=== PATIENT | male | born 1960 | race Caucasian/White ===

== ENCOUNTER 2021-07-19 14:24 | Inpatient (IN) ==
[2021-07-19] MEDS ORDERED: 0.9 % Sodium Chloride 1,000 ML IVC ONE ×2 (15:00→15:48)
[2021-07-19 15:17] LABS: Basophils # 0.1 K/mcL (0.0-0.2); Basophils % 1.2 %; Eosinophils # 0.2 K/mcL (0.0-0.6); Eosinophils % 1.6 %; Hematocrit 38.1 % (37.5-50.1); Hemoglobin 13.3 g/dL (12.9-16.9); Immature Granulocytes % 0.5 % (0-4); Lymphocytes # 2.1 K/mcL (0.6-4.6); Lymphocytes % 18.7 %; Mean Corpuscular HGB Conc 34.9 g/dL (31.6-35.5); Mean Corpuscular Hemoglobin 29.4 pg (28.0-33.3); Mean Corpuscular Volume 84.1 fL (83.0-100.0); Mean Platelet Volume 9.7 fL (9.4-12.4); Monocytes # 0.8 K/mcL (0.0-1.3); Monocytes % 7.4 %; Neutrophils # 7.7 K/mcL (1.6-8.9); Platelet Count 251 K/mcL (140-400); Red Blood Count 4.53 M/mcL (4.19-5.50); Red Cell Distribution Width 12.6 % (11.5-14.5); Segmented Neutrophils % 70.6 %
[2021-07-19 15:41] LABS: Bacteria,Urine Few per hpf (None-Few); Bilirubin,Urine Negative (Negative); Blood,Urine Small (Negative); Clarity,Urine Clear (Clear); Color,Urine Light-Yellow (Yellow); Glucose,Urine (UA) 500 mg/dL (Normal); Ketones,Urine Negative (Negative); Leukocyte Esterase,Urine Negative (Negative); Mucus,Urine Few per lpf (None-Few); Nitrite,Urine Negative (Negative); PH,Urine 6.5 pH Units (5.0-8.0); Protein,Urine >=600 mg/dL (Neg-Trace); Specific Gravity,Urine 1.012 (1.010-1.025); Squamous Epithelial Cell,Urine Few per hpf (None-Few); Urobilinogen,Urine Normal (Normal); WBC,Urine 0-3 per hpf (0-3)
[2021-07-19 15:46] LABS: Albumin 3.5 g/dL (3.5-5.7); Albumin/Globulin Ratio 1.1 (1.1-2.2); Bilirubin,Total 0.4 mg/dL (0.3-1.0); Calcium 9.1 mg/dL (8.6-10.3); Globulin 3.2 g/dL (2.4-3.5); Magnesium 1.7 mg/dL (1.6-2.6); Phosphorous 3.7 mg/dL (2.7-4.5); Potassium 3.7 mEq/L (3.5-5.1); Total Protein 6.7 g/dL (6.4-8.9); Troponin I 0.04 ng/mL (< 0.04)
[2021-07-19] MEDS ORDERED: Naloxone 0.4 MG/ML INJ IVP PRN (16:39)
[2021-07-19] MEDS ORDERED: Dextrose Gel 15 GM/37.5 ML TUBE PO PRN ×2 (16:45)
[2021-07-19] MEDS ORDERED: D5% in Water 1,000 ML IVC PRN (16:45)
[2021-07-19] MEDS ORDERED: *HR* Dextrose 50 % in Water (Syg) 50 ML SYRINGE IVP PRN (16:45)
[2021-07-19] MEDS: Insulin LISPRO 300 UNITS/3 ML VIAL SUBQ SCH (18:12)
[2021-07-19] MEDS: 0.9 % Sodium Chloride 1,000 ML IVC SCH (18:44)
[2021-07-19] MEDS ORDERED: Perflutren Lipid Microsphere 1.3 ML in 0.9 % Sodium Chloride 8.7 ML IVP PRN (18:54)
[2021-07-19] MEDS: Aspirin Enteric Coated 81 MG Tablet PO SCH (22:14)
[2021-07-19] MEDS: Insulin DETEMIR 100 UNIT/ML X5UNITS SUBQ SCH (22:17)
[2021-07-19] MEDS: hydrALAZINE 25 MG TABLET PO PRN (23:55)
[2021-07-20] MEDS ORDERED: NIFEdipine Immed Rel 10 MG CAPSULE PO ONE ×3 (00:57→21:47)
[2021-07-20] MEDS: 0.9 % Sodium Chloride 1,000 ML IVC SCH (03:18)
[2021-07-20 03:29] LABS: Basophils # 0.1 K/mcL (0.0-0.2); Eosinophils # 0.2 K/mcL (0.0-0.6); Eosinophils % 1.5 %; Hematocrit 34.5 % (37.5-50.1); Hemoglobin 11.8 g/dL (12.9-16.9); Immature Granulocytes % 0.5 % (0-4); Lymphocytes # 1.8 K/mcL (0.6-4.6); Lymphocytes % 17.3 %; Mean Corpuscular HGB Conc 34.2 g/dL (31.6-35.5); Mean Corpuscular Hemoglobin 28.9 pg (28.0-33.3); Mean Corpuscular Volume 84.4 fL (83.0-100.0); Mean Platelet Volume 9.9 fL (9.4-12.4); Monocytes # 0.8 K/mcL (0.0-1.3); Monocytes % 7.1 %; Neutrophils # 7.6 K/mcL (1.6-8.9); Platelet Count 221 K/mcL (140-400); Red Blood Count 4.09 M/mcL (4.19-5.50); Red Cell Distribution Width 12.7 % (11.5-14.5); Segmented Neutrophils % 72.6 %; White Blood Count 10.5 K/mcL (4.3-11.1)
[2021-07-20 03:38] LABS: Magnesium 1.6 mg/dL (1.6-2.6); Phosphorous 3.3 mg/dL (2.7-4.5)
[2021-07-20 03:41] LABS: Albumin 2.9 g/dL (3.5-5.7); Bilirubin,Total 0.2 mg/dL (0.3-1.0); Calcium 8.2 mg/dL (8.6-10.3); Chol/HDL Ratio 4.5 (0-4.9); Globulin 2.8 g/dL (2.4-3.5); Potassium 3.4 mEq/L (3.5-5.1); Total Protein 5.7 g/dL (6.4-8.9)
[2021-07-20 03:49] LABS: INR 1.1; Prothrombin Time 12.5 Seconds (9.4-12.1)
[2021-07-20 03:58] LABS: Troponin I 0.04 ng/mL (< 0.04)
[2021-07-20 05:05] LABS: Estimated Average Glucose 171 mg/dl; Hemoglobin A1C 7.6 %
[2021-07-20] MEDS: Aspirin Enteric Coated 81 MG Tablet PO SCH (08:39)
[2021-07-20] MEDS: Insulin LISPRO 300 UNITS/3 ML VIAL SUBQ SCH ×3 (08:40→17:36)
[2021-07-20] MEDS: Ondansetron 4 MG/2 ML VIAL IVP PRN ×2 (08:46→20:09)
[2021-07-20 11:56] LABS: Creatinine,Urine 54 mg/dL; Sodium, Urine < 10.0 mEq/L
[2021-07-20 14:22] LABS: Complement C3 150 mg/dL (87-200)
[2021-07-20] MEDS: hydrALAZINE 25 MG TABLET PO PRN (17:36)
[2021-07-20] MEDS: cloNIDine HCL 0.1 MG TABLET PO SCH (20:01)
[2021-07-20] MEDS: Insulin DETEMIR 100 UNIT/ML X5UNITS SUBQ SCH (20:05)
[2021-07-20] MEDS: Melatonin 3 MG TABLET PO PRN (22:35)
[2021-07-21 02:28] LABS: Calcium 8.5 mg/dL (8.6-10.3); Magnesium 1.8 mg/dL (1.6-2.6); Phosphorous 4.3 mg/dL (2.7-4.5); Potassium 3.6 mEq/L (3.5-5.1)
[2021-07-21] MEDS ORDERED: NIFEdipine Immed Rel 10 MG CAPSULE PO ONE (05:57)
[2021-07-21] MEDS: Aspirin Enteric Coated 81 MG Tablet PO SCH (07:55)
[2021-07-21] MEDS: Insulin LISPRO 300 UNITS/3 ML VIAL SUBQ SCH ×3 (07:55→16:51)
[2021-07-21] MEDS: hydrALAZINE 25 MG TABLET PO PRN (07:55)
[2021-07-21] MEDS: 0.9 % Sodium Chloride 1,000 ML IVC SCH ×2 (12:37→20:50)
[2021-07-21] MEDS ORDERED: hydrALAZINE 25 MG TABLET PO SCH (16:00)
[2021-07-21] MEDS: hydrALAZINE 25 MG TABLET PO SCH (16:50)
[2021-07-21] MEDS: Melatonin 3 MG TABLET PO PRN (20:28)
[2021-07-21] MEDS: cloNIDine HCL 0.1 MG TABLET PO SCH (20:28)
[2021-07-21] MEDS: Insulin DETEMIR 100 UNIT/ML X5UNITS SUBQ SCH (20:29)
[2021-07-21] MEDS: NIFEdipine XL (24 HR) 60 MG TAB.ER.24 PO SCH (20:49)
[2021-07-22] MEDS: hydrALAZINE 25 MG TABLET PO SCH ×5 (00:07→23:45)
[2021-07-22 01:44] LABS: Calcium 7.9 mg/dL (8.6-10.3); Potassium 3.5 mEq/L (3.5-5.1)
[2021-07-22] MEDS: 0.9 % Sodium Chloride 1,000 ML IVC SCH (09:40)
[2021-07-22] MEDS: Insulin LISPRO 300 UNITS/3 ML VIAL SUBQ SCH ×3 (09:42→16:32)
[2021-07-22] MEDS: NIFEdipine XL (24 HR) 60 MG TAB.ER.24 PO SCH (09:44)
[2021-07-22] MEDS: Aspirin Enteric Coated 81 MG Tablet PO SCH (09:44)
[2021-07-22 18:29] LABS: Microalbumin,Urine > 1350 mg/L; Protein/Creatinine Ratio,Urine 16.59 mg/mg (0.00-0.20)
[2021-07-22] MEDS: cloNIDine HCL 0.1 MG TABLET PO SCH (20:50)
[2021-07-22] MEDS: Insulin DETEMIR 100 UNIT/ML X5UNITS SUBQ SCH (20:53)
[2021-07-22] MEDS: *HR* Heparin 5,000 UNIT/ML VIAL SQ SCH (20:59)
[2021-07-23] MEDS: *HR* Heparin 5,000 UNIT/ML VIAL SQ SCH ×2 (04:28→13:11)
[2021-07-23] MEDS: 0.9 % Sodium Chloride 1,000 ML IVC SCH ×3 (04:29→13:09)
[2021-07-23 07:59] LABS: Basophils # 0.1 K/mcL (0.0-0.2); Basophils % 1.3 %; Eosinophils # 0.2 K/mcL (0.0-0.6); Eosinophils % 2.4 %; Hematocrit 33.7 % (37.5-50.1); Hemoglobin 11.5 g/dL (12.9-16.9); Immature Granulocytes % 0.4 % (0-4); Lymphocytes # 1.8 K/mcL (0.6-4.6); Lymphocytes % 18.1 %; Mean Corpuscular HGB Conc 34.1 g/dL (31.6-35.5); Mean Corpuscular Hemoglobin 29.2 pg (28.0-33.3); Mean Corpuscular Volume 85.5 fL (83.0-100.0); Mean Platelet Volume 9.6 fL (9.4-12.4); Monocytes # 0.7 K/mcL (0.0-1.3); Monocytes % 6.9 %; Platelet Count 218 K/mcL (140-400); Red Blood Count 3.94 M/mcL (4.19-5.50); Red Cell Distribution Width 12.8 % (11.5-14.5); Segmented Neutrophils % 70.9 %; White Blood Count 9.9 K/mcL (4.3-11.1)
[2021-07-23 08:13] LABS: Calcium 8.1 mg/dL (8.6-10.3); Potassium 3.7 mEq/L (3.5-5.1)
[2021-07-23] MEDS: Insulin LISPRO 300 UNITS/3 ML VIAL SUBQ SCH ×2 (08:28→13:10)
[2021-07-23] MEDS: Aspirin Enteric Coated 81 MG Tablet PO SCH (08:30)
[2021-07-23] MEDS: hydrALAZINE 25 MG TABLET PO SCH (08:30)
[2021-07-23] MEDS ORDERED: NIFEdipine XL (24 HR) 30 MG TAB.ER.24 PO SCH (09:00)
[2021-07-23 09:56] LABS: Serine Protease-3 Antibody 0 AU/mL (0-19)
[2021-07-23 12:44] VITALS: BP 157/87; PULSE 66; TEMP 98.1; O2SAT 95
[2021-07-23] MEDS ORDERED: Ringers Solution, Lactated 1,000 ML IVC SCH (13:30)
[2021-07-24 08:10] LABS: Alpha 2 Globulin (PEP) 1.11 g/dL (0.48-1.05); Beta Globulin (PEP) 0.78 g/dL (0.48-1.10)
[2021-07-24 10:15] LABS: IFE Reflexed IFE Done; Immunoglobulin A 232 mg/dL (68-408); Immunoglobulin G 1041 mg/dL (768-1632); Immunoglobulin M 139 mg/dL (35-263)
[2021-07-24 17:38] LABS: ANCA IFA Titer <1:20 (<1:20)
[2021-07-24 18:20] LABS: ANCA IFA Pattern NONE DETECTED (None Detected)
== END 2021-07-23 16:27 | disposition left against medical advice (07) | DRG 469 ==
LOC: 2ANU 14:24 → EMEROOARM 14:24 → SUATTDRO 17:21 → 2ANU 17:56
PROVIDERS: ADMIT Hospitalist; ATTEND Hospitalist

== ENCOUNTER 2022-02-06 06:30 | Inpatient (IN) ==
[2022-02-06 09:12] LABS: Basophils % 0.3 %; Eosinophils % 0.2 %; Hematocrit 33.4 % (37.5-50.1); Hemoglobin 10.6 g/dL (12.9-16.9); Immature Granulocytes % 0.7 % (0-4); Lymphocytes # 0.8 K/mcL (0.6-4.6); Lymphocytes % 6.1 %; Mean Corpuscular HGB Conc 31.7 g/dL (31.6-35.5); Mean Corpuscular Hemoglobin 26.8 pg (28.0-33.3); Mean Corpuscular Volume 84.3 fL (83.0-100.0); Mean Platelet Volume 10.2 fL (9.4-12.4); Monocytes # 0.9 K/mcL (0.0-1.3); Monocytes % 7.2 %; Platelet Count 230 K/mcL (140-400); Red Blood Count 3.96 M/mcL (4.19-5.50); Red Cell Distribution Width 14.4 % (11.5-14.5); Segmented Neutrophils % 85.5 %; White Blood Count 12.9 K/mcL (4.3-11.1)
[2022-02-06 10:01] LABS: Albumin 2.9 g/dL (3.5-5.7); Bilirubin,Total 0.7 mg/dL (0.3-1.0); Calcium 8.5 mg/dL (8.6-10.3); Globulin 2.8 g/dL (2.4-3.5); Magnesium 1.9 mg/dL (1.6-2.6); Potassium 4.3 mEq/L (3.5-5.1); Thyroid Stimulating Hormone 3.486 mcIU/mL (0.340-5.600); Total Protein 5.7 g/dL (6.4-8.9); Troponin I 0.06 ng/mL (< 0.04)
[2022-02-06] MEDS ORDERED: Benzonatate 100 MG CAPSULE PO STA (10:58)
[2022-02-06] MEDS ORDERED: Furosemide 40 MG/4 ML VIAL IVP ONE (11:05)
[2022-02-06] MEDS ORDERED: cefTRIAXone 1,000 MG in 0.9 % Sodium Chloride 10 ML IVP ONE (11:07)
[2022-02-06] MEDS ORDERED: Naloxone 0.4 MG/ML INJ IVP PRN (12:08)
[2022-02-06] MEDS ORDERED: Ipratropium/Albuterol Neb 3 ML IH PRN (12:37)
[2022-02-06] MEDS ORDERED: *HR* Dextrose 50 % in Water (Syg) 50 ML SYRINGE IVP PRN (12:44)
[2022-02-06] MEDS ORDERED: D5% in Water 1,000 ML IVC PRN (12:44)
[2022-02-06] MEDS ORDERED: Dextrose 4 GM Chewable Tablets PO PRN ×2 (12:44)
[2022-02-06 13:30] LABS: Troponin I 0.05 ng/mL (< 0.04)
[2022-02-06 14:06] LABS: Bilirubin,Urine Negative (Negative); Blood,Urine Negative (Negative); Clarity,Urine Clear (Clear); Color,Urine Yellow (Yellow); Glucose,Urine (UA) 100 mg/dL (Normal); Ketones,Urine Negative (Negative); Leukocyte Esterase,Urine Negative (Negative); Mucus,Urine Few per lpf (None-Few); Nitrite,Urine Negative (Negative); Protein,Urine >=600 mg/dL (Neg-Trace); Specific Gravity,Urine 1.021 (1.010-1.025); Squamous Epithelial Cell,Urine Few per hpf (None-Few); Urobilinogen,Urine Normal (Normal)
[2022-02-06 14:23] LABS: Estimated Average Glucose 117 mg/dl; Hemoglobin A1C 5.7 %
[2022-02-06 15:14] LABS: Phosphorous 3.3 mg/dL (2.7-4.5); Uric Acid 6.4 mg/dL (2.3-7.6)
[2022-02-06 16:02] LABS: Creatinine,Urine 115 mg/dL; Microalbumin,Urine > 1350 mg/L; Protein/Creatinine Ratio,Urine 7.83 mg/mg (0.00-0.20); Sodium, Urine 33.2 mEq/L
[2022-02-06] MEDS: Insulin LISPRO 300 UNITS/3 ML VIAL SUBQ SCH (16:06)
[2022-02-06] MEDS: *HR* Heparin 5,000 UNIT/ML VIAL SQ SCH (17:18)
[2022-02-06] MEDS: Albumin 25% 25gram/100mL 25 GM/100 ML IV.SOLN IVPB SCH ×2 (17:18→23:59)
[2022-02-06 18:21] LABS: Hepatitis B Surface Antigen Nonreactive (Nonreactive)
[2022-02-06] MEDS: GuaiFENesin Liq 200 MG/10 ML UDC PO PRN (18:35)
[2022-02-06 18:49] LABS: Hepatitis B Core IgM Nonreactive (Nonreactive)
[2022-02-06 18:50] LABS: Hepatitis C Virus Antibody Nonreactive (Nonreactive)
[2022-02-06 18:51] LABS: Hepatitis A Antibody IgM Nonreactive (Nonreactive)
[2022-02-06] MEDS: Furosemide 40 MG/4 ML VIAL IVP SCH (19:37)
[2022-02-06] MEDS ORDERED: NIFEdipine XL (24 HR) 30 MG TAB.ER.24 PO SCH (21:00)
[2022-02-06] MEDS ORDERED: Metoprolol 100 MG TABLET PO SCH ×2 (21:00)
[2022-02-06] MEDS ORDERED: Acetaminophen 325 MG TABLET PO ONE (23:59)
[2022-02-07] MEDS: *HR* Heparin 5,000 UNIT/ML VIAL SQ SCH ×3 (05:45→18:13)
[2022-02-07] MEDS: GuaiFENesin Liq 200 MG/10 ML UDC PO PRN (05:51)
[2022-02-07 06:06] LABS: Basophils % 0.1 %; Eosinophils % 0.1 %; Hematocrit 31.4 % (37.5-50.1); Hemoglobin 10.1 g/dL (12.9-16.9); Immature Granulocytes % 0.7 % (0-4); Lymphocytes # 0.8 K/mcL (0.6-4.6); Lymphocytes % 5.5 %; Mean Corpuscular HGB Conc 32.2 g/dL (31.6-35.5); Mean Corpuscular Hemoglobin 26.7 pg (28.0-33.3); Mean Corpuscular Volume 83.1 fL (83.0-100.0); Mean Platelet Volume 10.2 fL (9.4-12.4); Monocytes % 7.2 %; Neutrophils # 12.1 K/mcL (1.6-8.9); Platelet Count 226 K/mcL (140-400); Red Blood Count 3.78 M/mcL (4.19-5.50); Red Cell Distribution Width 14.4 % (11.5-14.5); Segmented Neutrophils % 86.4 %
[2022-02-07 06:24] LABS: Calcium 8.3 mg/dL (8.6-10.3); Magnesium 1.9 mg/dL (1.6-2.6); Phosphorous 3.8 mg/dL (2.7-4.5); Potassium 4.3 mEq/L (3.5-5.1)
[2022-02-07] MEDS ORDERED: Perflutren Lipid Microsphere 1.3 ML in 0.9 % Sodium Chloride 8.7 ML IVP PRN ×2 (07:39→18:53)
[2022-02-07] MEDS ORDERED: Cefepime HCl 1,000 MG in 0.9 % Sodium Chloride 10 ML IVP SCH (08:00)
[2022-02-07] MEDS: Furosemide 40 MG/4 ML VIAL IVP SCH (10:00)
[2022-02-07] MEDS: Cefepime HCl 1,000 MG in 0.9 % Sodium Chloride 10 ML IVP SCH ×2 (10:00→22:33)
[2022-02-07] MEDS: Aspirin 81 MG TAB.CHEW PO SCH (10:01)
[2022-02-07] MEDS: Insulin LISPRO 300 UNITS/3 ML VIAL SUBQ SCH ×3 (10:01→18:12)
[2022-02-07] MEDS: Doxycycline 100 MG in 0.9 % Sodium Chloride Mini Bag 100 ML IVPB SCH ×2 (10:01→18:14)
[2022-02-07] MEDS: Albumin 25% 25gram/100mL 25 GM/100 ML IV.SOLN IVPB SCH ×2 (11:15→18:21)
[2022-02-07 17:48] LABS: ABG Base Excess -4 mEq/L (-2 to 3); ABG HCO3 17 mEq/L (21-27); ABG Oxygen Saturation 98 % (95-98); ABG PCO2 22 mmHg (35-45); ABG PH 7.51 pH Units (7.32-7.45); ABG PO2 95 mmHg (85-104); ABG TCO2 18 mEq/L (20-26)
[2022-02-07] MEDS: Ergocalciferol (VIT D2) 50,000 UNIT (1.25MG) CAP PO SCH (18:12)
[2022-02-08] MEDS: Albumin 25% 25gram/100mL 25 GM/100 ML IV.SOLN IVPB SCH ×4 (00:59→23:29)
[2022-02-08] MEDS: hydrALAZINE 25 MG TABLET PO SCH ×4 (01:05→23:29)
[2022-02-08] MEDS: Doxycycline 100 MG in 0.9 % Sodium Chloride Mini Bag 100 ML IVPB SCH ×2 (05:54→17:58)
[2022-02-08] MEDS: *HR* Heparin 5,000 UNIT/ML VIAL SQ SCH (05:55)
[2022-02-08] MEDS: Insulin LISPRO 300 UNITS/3 ML VIAL SUBQ SCH ×3 (09:07→17:12)
[2022-02-08] MEDS: Aspirin 81 MG TAB.CHEW PO SCH (09:07)
[2022-02-08] MEDS: Cefepime HCl 1,000 MG in 0.9 % Sodium Chloride 10 ML IVP SCH ×2 (09:07→20:04)
[2022-02-08 09:13] LABS: Basophils % 0.2 %; Eosinophils # 0.1 K/mcL (0.0-0.6); Eosinophils % 0.5 %; Hematocrit 29.5 % (37.5-50.1); Hemoglobin 9.5 g/dL (12.9-16.9); Immature Granulocytes % 0.7 % (0-4); Lymphocytes # 0.7 K/mcL (0.6-4.6); Lymphocytes % 5.6 %; Mean Corpuscular HGB Conc 32.2 g/dL (31.6-35.5); Mean Corpuscular Hemoglobin 26.6 pg (28.0-33.3); Mean Corpuscular Volume 82.6 fL (83.0-100.0); Mean Platelet Volume 10.3 fL (9.4-12.4); Monocytes # 0.6 K/mcL (0.0-1.3); Monocytes % 4.5 %; Neutrophils # 10.9 K/mcL (1.6-8.9); Platelet Count 225 K/mcL (140-400); Red Blood Count 3.57 M/mcL (4.19-5.50); Red Cell Distribution Width 14.5 % (11.5-14.5); Segmented Neutrophils % 88.5 %; White Blood Count 12.3 K/mcL (4.3-11.1)
[2022-02-08 09:35] LABS: Calcium 8.6 mg/dL (8.6-10.3); Magnesium 1.9 mg/dL (1.6-2.6); Phosphorous 3.4 mg/dL (2.7-4.5)
[2022-02-08] MEDS ORDERED: *HR* Heparin 5,000 UNIT/ML VIAL IVP ONE (10:42)
[2022-02-08] MEDS ORDERED: *HR* Heparin 5,000 UNIT/ML VIAL IVP PRN ×2 (10:42)
[2022-02-08] MEDS ORDERED: Furosemide 40 MG/4 ML VIAL IVP ONE (11:23)
[2022-02-08] MEDS: Heparin 25,000UNIT/250ML 1/2NS 25,000 UNIT/250 ML IV.SOLN IVC SCH (12:19)
[2022-02-08 12:26] LABS: Hematocrit 27.5 % (37.5-50.1); Hemoglobin 8.6 g/dL (12.9-16.9); Mean Corpuscular HGB Conc 31.3 g/dL (31.6-35.5); Mean Corpuscular Hemoglobin 26.2 pg (28.0-33.3); Mean Corpuscular Volume 83.8 fL (83.0-100.0); Mean Platelet Volume 10.5 fL (9.4-12.4); Platelet Count 209 K/mcL (140-400); Red Blood Count 3.28 M/mcL (4.19-5.50); Red Cell Distribution Width 14.5 % (11.5-14.5); White Blood Count 11.8 K/mcL (4.3-11.1)
[2022-02-08 12:36] LABS: Heparin anti-factor XA UFH < 0.04 IU/mL (0.30-0.70); INR 1.5; Prothrombin Time 16.4 Seconds (9.4-12.1)
[2022-02-08] MEDS ORDERED: Acetaminophen 325 MG TABLET PO ONE (19:51)
[2022-02-08] MEDS: Metoprolol XL (24 HR) Succ 25 MG TAB.ER.24H PO SCH (20:03)
[2022-02-09] MEDS: Heparin 25,000UNIT/250ML 1/2NS 25,000 UNIT/250 ML IV.SOLN IVC SCH ×2 (02:50→16:57)
[2022-02-09] MEDS: Doxycycline 100 MG in 0.9 % Sodium Chloride Mini Bag 100 ML IVPB SCH (04:37)
[2022-02-09] MEDS: GuaiFENesin Liq 200 MG/10 ML UDC PO PRN ×2 (05:34→22:20)
[2022-02-09] MEDS: Insulin LISPRO 300 UNITS/3 ML VIAL SUBQ SCH ×3 (07:18→16:25)
[2022-02-09] MEDS: Albumin 25% 25gram/100mL 25 GM/100 ML IV.SOLN IVPB SCH ×3 (09:40→23:59)
[2022-02-09] MEDS: Doxycycline 100 MG CAPSULE PO SCH ×2 (09:41→20:10)
[2022-02-09] MEDS: Metoprolol XL (24 HR) Succ 25 MG TAB.ER.24H PO SCH ×2 (09:41→20:10)
[2022-02-09] MEDS: hydrALAZINE 25 MG TABLET PO SCH ×3 (09:41→23:59)
[2022-02-09] MEDS: Aspirin 81 MG TAB.CHEW PO SCH (09:41)
[2022-02-09] MEDS: cephALEXin 500 MG CAPSULE PO SCH ×2 (09:41→20:10)
[2022-02-09 10:07] LABS: Basophils % 0.3 %; Eosinophils # 0.1 K/mcL (0.0-0.6); Eosinophils % 0.7 %; Hematocrit 29.8 % (37.5-50.1); Immature Granulocytes % 0.7 % (0-4); Lymphocytes # 0.5 K/mcL (0.6-4.6); Lymphocytes % 4.6 %; Mean Corpuscular HGB Conc 31.2 g/dL (31.6-35.5); Mean Corpuscular Volume 83.2 fL (83.0-100.0); Mean Platelet Volume 10.4 fL (9.4-12.4); Monocytes # 0.5 K/mcL (0.0-1.3); Monocytes % 4.1 %; Neutrophils # 10.6 K/mcL (1.6-8.9); Platelet Count 271 K/mcL (140-400); Red Blood Count 3.58 M/mcL (4.19-5.50); Red Cell Distribution Width 14.6 % (11.5-14.5); Segmented Neutrophils % 89.6 %
[2022-02-09 10:23] LABS: Calcium 8.7 mg/dL (8.6-10.3); Potassium 4.1 mEq/L (3.5-5.1)
[2022-02-09 10:30] LABS: Hemoglobin 9.3 g/dL (12.9-16.9); White Blood Count 11.8 K/mcL (4.3-11.1)
[2022-02-09] MEDS ORDERED: Furosemide 40 MG/4 ML VIAL IVP ONE (15:46)
[2022-02-10] MEDS ORDERED: Acetaminophen 325 MG TABLET PO ONE (01:48)
[2022-02-10 02:01] LABS: Basophils % 0.4 %; Eosinophils # 0.1 K/mcL (0.0-0.6); Eosinophils % 0.9 %; Hematocrit 28.3 % (37.5-50.1); Hemoglobin 8.9 g/dL (12.9-16.9); Immature Granulocytes % 0.8 % (0-4); Lymphocytes # 0.8 K/mcL (0.6-4.6); Lymphocytes % 7.2 %; Mean Corpuscular HGB Conc 31.4 g/dL (31.6-35.5); Mean Corpuscular Hemoglobin 26.3 pg (28.0-33.3); Mean Corpuscular Volume 83.7 fL (83.0-100.0); Mean Platelet Volume 10.6 fL (9.4-12.4); Monocytes # 0.5 K/mcL (0.0-1.3); Monocytes % 4.6 %; Neutrophils # 9.7 K/mcL (1.6-8.9); Platelet Count 268 K/mcL (140-400); Red Blood Count 3.38 M/mcL (4.19-5.50); Red Cell Distribution Width 14.6 % (11.5-14.5); Segmented Neutrophils % 86.1 %; White Blood Count 11.3 K/mcL (4.3-11.1)
[2022-02-10 02:08] LABS: Heparin anti-factor XA UFH 0.5 IU/mL (0.30-0.70); INR 1.5; Prothrombin Time 17.1 Seconds (9.4-12.1)
[2022-02-10 02:11] LABS: Activated Partial Thrombo Time 96.4 Seconds (26.0-36.0)
[2022-02-10 02:20] LABS: Calcium 8.8 mg/dL (8.6-10.3); Potassium 3.9 mEq/L (3.5-5.1)
[2022-02-10] MEDS: GuaiFENesin Liq 200 MG/10 ML UDC PO PRN ×3 (04:41→19:35)
[2022-02-10] MEDS: Insulin LISPRO 300 UNITS/3 ML VIAL SUBQ SCH ×3 (07:23→15:40)
[2022-02-10] MEDS: Metoprolol XL (24 HR) Succ 25 MG TAB.ER.24H PO SCH ×2 (07:35→19:37)
[2022-02-10] MEDS: hydrALAZINE 25 MG TABLET PO SCH ×4 (07:35→23:39)
[2022-02-10] MEDS: Aspirin 81 MG TAB.CHEW PO SCH (07:35)
[2022-02-10] MEDS: Doxycycline 100 MG CAPSULE PO SCH ×2 (07:35→19:37)
[2022-02-10] MEDS: cephALEXin 500 MG CAPSULE PO SCH ×2 (07:35→19:37)
[2022-02-10] MEDS: Albumin 25% 25gram/100mL 25 GM/100 ML IV.SOLN IVPB SCH ×4 (07:36→23:39)
[2022-02-10] MEDS ORDERED: Furosemide 240 MG in 0.9 % Sodium Chloride 96 ML IVC SCH (08:00)
[2022-02-10] MEDS ORDERED: *HR* Heparin 10,000 UNIT/10 ML VIAL IV PRN (10:55)
[2022-02-10] MEDS ORDERED: Albumin 25% 25gram/100mL 25 GM/100 ML IV.SOLN IVPB PRN (10:55)
[2022-02-10] MEDS ORDERED: 0.9 % Sodium Chloride 250 ML IVC PRN (10:55)
[2022-02-10] MEDS ORDERED: 0.9 % Sodium Chloride 1,000 ML PRIME SCH (11:00)
[2022-02-10] MEDS: Heparin 25,000UNIT/250ML 1/2NS 25,000 UNIT/250 ML IV.SOLN IVC SCH (11:56)
[2022-02-10] MEDS ORDERED: Heparin 1,000 UNITS/500 mL 500 ML ONE (12:39)
[2022-02-10] MEDS ORDERED: *HR* Heparin 5,000 UNIT/ML VIAL ONE (13:46)
[2022-02-10 17:18] LABS: Hepatitis B Surface Antibody < 3.10 mIU/mL
[2022-02-10 17:29] LABS: Hepatitis B Surface Antigen Nonreactive (Nonreactive)
[2022-02-11] MEDS: Heparin 25,000UNIT/250ML 1/2NS 25,000 UNIT/250 ML IV.SOLN IVC SCH ×2 (01:59→16:54)
[2022-02-11] MEDS ORDERED: Acetaminophen 325 MG TABLET PO ONE (02:17)
[2022-02-11 02:34] LABS: Basophils % 0.4 %; Eosinophils # 0.1 K/mcL (0.0-0.6); Hematocrit 28.5 % (37.5-50.1); Hemoglobin 8.9 g/dL (12.9-16.9); Lymphocytes % 8.9 %; Mean Corpuscular HGB Conc 31.2 g/dL (31.6-35.5); Mean Corpuscular Volume 83.3 fL (83.0-100.0); Mean Platelet Volume 10.1 fL (9.4-12.4); Monocytes # 0.6 K/mcL (0.0-1.3); Monocytes % 5.3 %; Neutrophils # 9.4 K/mcL (1.6-8.9); Platelet Count 300 K/mcL (140-400); Red Blood Count 3.42 M/mcL (4.19-5.50); Red Cell Distribution Width 14.4 % (11.5-14.5); Segmented Neutrophils % 83.4 %; White Blood Count 11.3 K/mcL (4.3-11.1)
[2022-02-11 02:51] LABS: Calcium 9.2 mg/dL (8.6-10.3); Potassium 3.7 mEq/L (3.5-5.1)
[2022-02-11] MEDS: Insulin LISPRO 300 UNITS/3 ML VIAL SUBQ SCH ×3 (07:08→16:49)
[2022-02-11] MEDS ORDERED: *HR* Heparin 10,000 UNIT/10 ML VIAL IV PRN ×2 (08:36)
[2022-02-11] MEDS ORDERED: 0.9 % Sodium Chloride 250 ML IVC PRN (08:36)
[2022-02-11] MEDS: Aspirin 81 MG TAB.CHEW PO SCH (09:33)
[2022-02-11] MEDS: Doxycycline 100 MG CAPSULE PO SCH ×2 (09:33→19:13)
[2022-02-11] MEDS: hydrALAZINE 25 MG TABLET PO SCH ×2 (09:34→14:48)
[2022-02-11] MEDS: Metoprolol XL (24 HR) Succ 25 MG TAB.ER.24H PO SCH ×2 (09:34→19:13)
[2022-02-11] MEDS: cephALEXin 500 MG CAPSULE PO SCH ×2 (09:34→19:13)
[2022-02-11] MEDS: GuaiFENesin Liq 200 MG/10 ML UDC PO PRN ×2 (09:59→21:00)
[2022-02-11] MEDS: Acetaminophen 325 MG TABLET PO PRN (20:13)
[2022-02-12] MEDS: hydrALAZINE 25 MG TABLET PO SCH ×4 (03:16→23:26)
[2022-02-12 03:40] LABS: Basophils % 0.4 %; Eosinophils # 0.2 K/mcL (0.0-0.6); Eosinophils % 1.5 %; Hematocrit 29.7 % (37.5-50.1); Hemoglobin 9.4 g/dL (12.9-16.9); Immature Granulocytes % 1.2 % (0-4); Lymphocytes # 1.6 K/mcL (0.6-4.6); Lymphocytes % 14.8 %; Mean Corpuscular HGB Conc 31.6 g/dL (31.6-35.5); Mean Corpuscular Hemoglobin 26.6 pg (28.0-33.3); Mean Corpuscular Volume 84.1 fL (83.0-100.0); Mean Platelet Volume 9.8 fL (9.4-12.4); Monocytes # 0.7 K/mcL (0.0-1.3); Monocytes % 6.8 %; Neutrophils # 7.9 K/mcL (1.6-8.9); Platelet Count 344 K/mcL (140-400); Red Blood Count 3.53 M/mcL (4.19-5.50); Red Cell Distribution Width 14.6 % (11.5-14.5); Segmented Neutrophils % 75.3 %; White Blood Count 10.6 K/mcL (4.3-11.1)
[2022-02-12 04:01] LABS: Calcium 8.5 mg/dL (8.6-10.3); Potassium 3.3 mEq/L (3.5-5.1)
[2022-02-12 04:02] LABS: Phosphorous 2.4 mg/dL (2.7-4.5)
[2022-02-12] MEDS: Heparin 25,000UNIT/250ML 1/2NS 25,000 UNIT/250 ML IV.SOLN IVC SCH ×2 (05:52→19:44)
[2022-02-12] MEDS ORDERED: 0.9 % Sodium Chloride 250 ML IVC PRN (06:46)
[2022-02-12] MEDS ORDERED: 0.9 % Sodium Chloride 1,000 ML PRIME SCH (07:00)
[2022-02-12] MEDS: Insulin LISPRO 300 UNITS/3 ML VIAL SUBQ SCH ×3 (07:47→16:18)
[2022-02-12] MEDS: Doxycycline 100 MG CAPSULE PO SCH ×2 (07:57→19:35)
[2022-02-12] MEDS: Aspirin 81 MG TAB.CHEW PO SCH (07:57)
[2022-02-12] MEDS: cephALEXin 500 MG CAPSULE PO SCH ×2 (07:57→19:35)
[2022-02-12] MEDS: Metoprolol XL (24 HR) Succ 25 MG TAB.ER.24H PO SCH ×2 (07:59→19:34)
[2022-02-12] MEDS ORDERED: *HR* Heparin 10,000 UNIT/10 ML VIAL IV PRN (08:28)
[2022-02-12 11:15] LABS: ANA IgG by ELISA NONE DETECTED (None Detected)
[2022-02-12] MEDS: GuaiFENesin Liq 200 MG/10 ML UDC PO PRN ×2 (11:36→20:26)
[2022-02-12] MEDS: Acetaminophen 325 MG TABLET PO PRN (19:35)
[2022-02-13] MEDS: Acetaminophen 325 MG TABLET PO PRN (04:31)
[2022-02-13 05:41] LABS: Basophils # 0.1 K/mcL (0.0-0.2); Basophils % 0.5 %; Eosinophils # 0.1 K/mcL (0.0-0.6); Eosinophils % 1.4 %; Hematocrit 28.5 % (37.5-50.1); Hemoglobin 8.8 g/dL (12.9-16.9); Immature Granulocytes % 1.7 % (0-4); Lymphocytes # 1.5 K/mcL (0.6-4.6); Lymphocytes % 15.5 %; Mean Corpuscular HGB Conc 30.9 g/dL (31.6-35.5); Mean Corpuscular Hemoglobin 25.8 pg (28.0-33.3); Mean Corpuscular Volume 83.6 fL (83.0-100.0); Mean Platelet Volume 9.9 fL (9.4-12.4); Monocytes # 0.6 K/mcL (0.0-1.3); Monocytes % 6.6 %; Neutrophils # 7.2 K/mcL (1.6-8.9); Platelet Count 365 K/mcL (140-400); Red Blood Count 3.41 M/mcL (4.19-5.50); Red Cell Distribution Width 14.7 % (11.5-14.5); Segmented Neutrophils % 74.3 %; White Blood Count 9.7 K/mcL (4.3-11.1)
[2022-02-13 06:19] LABS: Calcium 8.8 mg/dL (8.6-10.3); Potassium 3.5 mEq/L (3.5-5.1)
[2022-02-13] MEDS ORDERED: 0.9 % Sodium Chloride 250 ML IVC PRN (06:37)
[2022-02-13] MEDS: Insulin LISPRO 300 UNITS/3 ML VIAL SUBQ SCH ×3 (07:10→16:12)
[2022-02-13] MEDS: Heparin 25,000UNIT/250ML 1/2NS 25,000 UNIT/250 ML IV.SOLN IVC SCH ×3 (07:11→20:59)
[2022-02-13] MEDS ORDERED: *HR* Heparin 10,000 UNIT/10 ML VIAL IV PRN (08:10)
[2022-02-13] MEDS: hydrALAZINE 25 MG TABLET PO SCH ×2 (08:48→17:02)
[2022-02-13] MEDS: Metoprolol XL (24 HR) Succ 25 MG TAB.ER.24H PO SCH ×2 (08:48→20:42)
[2022-02-13] MEDS: cephALEXin 500 MG CAPSULE PO SCH ×2 (08:48→20:40)
[2022-02-13] MEDS: Doxycycline 100 MG CAPSULE PO SCH ×2 (08:48→20:41)
[2022-02-13] MEDS: Aspirin 81 MG TAB.CHEW PO SCH (08:49)
[2022-02-13 10:27] LABS: Kappa Qnt Free Light Chains 111.03 mg/L (3.30-19.40); Lambda Qnt Free Light Chains 69.93 mg/L (5.71-26.30)
[2022-02-13 10:45] LABS: GBM IgG Multiplex Bead Assay 0 AU/mL (0-19); Glomerular Basement Memb IgG NEGATIVE (Negative)
[2022-02-13] MEDS: GuaiFENesin Liq 200 MG/10 ML UDC PO PRN ×2 (17:04→22:36)
[2022-02-14] MEDS: hydrALAZINE 25 MG TABLET PO SCH ×4 (00:04→23:38)
[2022-02-14] MEDS: Acetaminophen 325 MG TABLET PO PRN (00:04)
[2022-02-14 04:21] LABS: Basophils # 0.1 K/mcL (0.0-0.2); Basophils % 0.7 %; Eosinophils # 0.1 K/mcL (0.0-0.6); Eosinophils % 1.3 %; Hematocrit 28.6 % (37.5-50.1); Hemoglobin 8.9 g/dL (12.9-16.9); Immature Granulocytes % 2.3 % (0-4); Lymphocytes % 19.1 %; Mean Corpuscular HGB Conc 31.1 g/dL (31.6-35.5); Mean Corpuscular Hemoglobin 26.5 pg (28.0-33.3); Mean Corpuscular Volume 85.1 fL (83.0-100.0); Mean Platelet Volume 10.1 fL (9.4-12.4); Monocytes # 0.7 K/mcL (0.0-1.3); Monocytes % 6.6 %; Neutrophils # 7.4 K/mcL (1.6-8.9); Platelet Count 374 K/mcL (140-400); Red Blood Count 3.36 M/mcL (4.19-5.50); Red Cell Distribution Width 14.8 % (11.5-14.5); White Blood Count 10.6 K/mcL (4.3-11.1)
[2022-02-14 04:42] LABS: Calcium 8.8 mg/dL (8.6-10.3); Potassium 3.4 mEq/L (3.5-5.1)
[2022-02-14] MEDS: GuaiFENesin Liq 200 MG/10 ML UDC PO PRN ×2 (06:17→17:33)
[2022-02-14] MEDS ORDERED: 0.9 % Sodium Chloride 250 ML IVC PRN (06:40)
[2022-02-14] MEDS: Insulin LISPRO 300 UNITS/3 ML VIAL SUBQ SCH ×3 (08:21→17:33)
[2022-02-14] MEDS ORDERED: *HR* Heparin 10,000 UNIT/10 ML VIAL IV PRN (08:49)
[2022-02-14] MEDS: Aspirin 81 MG TAB.CHEW PO SCH (09:16)
[2022-02-14] MEDS: Doxycycline 100 MG CAPSULE PO SCH ×2 (09:16→20:01)
[2022-02-14] MEDS: cephALEXin 500 MG CAPSULE PO SCH ×2 (09:16→20:02)
[2022-02-14] MEDS: Metoprolol XL (24 HR) Succ 25 MG TAB.ER.24H PO SCH ×2 (09:17→20:01)
[2022-02-14] MEDS: Heparin 25,000UNIT/250ML 1/2NS 25,000 UNIT/250 ML IV.SOLN IVC SCH ×2 (10:16→22:36)
[2022-02-14] MEDS: Ergocalciferol (VIT D2) 50,000 UNIT (1.25MG) CAP PO SCH (17:33)
[2022-02-14] MEDS: Ondansetron 4 MG/2 ML VIAL IVP PRN (20:00)
[2022-02-15 03:00] LABS: Magnesium 1.7 mg/dL (1.6-2.6)
[2022-02-15] MEDS: Acetaminophen 325 MG TABLET PO PRN (06:24)
[2022-02-15] MEDS: Insulin LISPRO 300 UNITS/3 ML VIAL SUBQ SCH ×3 (07:34→17:13)
[2022-02-15] MEDS: Aspirin 81 MG TAB.CHEW PO SCH (07:53)
[2022-02-15] MEDS: Metoprolol XL (24 HR) Succ 25 MG TAB.ER.24H PO SCH (07:54)
[2022-02-15] MEDS: hydrALAZINE 25 MG TABLET PO SCH ×2 (07:54→17:12)
[2022-02-15] MEDS: GuaiFENesin Liq 200 MG/10 ML UDC PO PRN ×3 (08:00→21:39)
[2022-02-15] MEDS ORDERED: 0.9 % Sodium Chloride 250 ML IVC PRN (09:21)
[2022-02-15] MEDS ORDERED: *HR* Heparin 10,000 UNIT/10 ML VIAL IV PRN (09:21)
[2022-02-15] MEDS: carvediloL 6.25 MG TABLET PO SCH ×2 (09:39→17:13)
[2022-02-15] MEDS: Ondansetron 4 MG/2 ML VIAL IVP PRN (12:06)
[2022-02-15] MEDS: Heparin 25,000UNIT/250ML 1/2NS 25,000 UNIT/250 ML IV.SOLN IVC SCH (13:03)
[2022-02-15 14:45] LABS: Total Volume 24 Hour,Urine 0.24 Liters (0.80-1.80)
[2022-02-15 15:12] LABS: Protein/Creatinine Ratio,Urine 12.63 mg/mg (0.00-0.20); Sodium, Urine 39.7 mEq/L
[2022-02-15] MEDS: Furosemide 40 MG/4 ML VIAL IVP SCH (19:54)
[2022-02-16 00:07] LABS: APTT (LE Anticoag) 88 sec (32-48); Diluted Russell Viper Venom 35 sec (33-44); LE Coag APTT Mixing 57 sec (32-48); PT (LE-Anticoag) 16.4 sec (12.0-15.5); Thrombin Time 18.4 sec (14.7-19.5)
[2022-02-16] MEDS: hydrALAZINE 25 MG TABLET PO SCH ×4 (00:22→23:25)
[2022-02-16] MEDS ORDERED: Melatonin 3 MG TABLET PO ONE (00:27)
[2022-02-16 04:35] LABS: Calcium 9.5 mg/dL (8.6-10.3); Potassium 4.4 mEq/L (3.5-5.1)
[2022-02-16] MEDS: GuaiFENesin Liq 200 MG/10 ML UDC PO PRN ×3 (05:14→21:02)
[2022-02-16] MEDS: Heparin 25,000UNIT/250ML 1/2NS 25,000 UNIT/250 ML IV.SOLN IVC SCH ×2 (06:50→23:26)
[2022-02-16] MEDS: Insulin LISPRO 300 UNITS/3 ML VIAL SUBQ SCH ×3 (08:00→17:32)
[2022-02-16] MEDS: Aspirin 81 MG TAB.CHEW PO SCH (08:00)
[2022-02-16] MEDS: Furosemide 40 MG/4 ML VIAL IVP SCH ×2 (08:00→17:25)
[2022-02-16] MEDS: carvediloL 6.25 MG TABLET PO SCH ×2 (08:00→17:26)
[2022-02-16] MEDS: Ondansetron 4 MG/2 ML VIAL IVP PRN (14:30)
[2022-02-16] MEDS: *HR* Acetylcysteine 20% 600 MG/3 ML ORAL SYRINGE PO SCH ×2 (14:30→21:42)
[2022-02-17 04:49] LABS: Basophils # 0.1 K/mcL (0.0-0.2); Basophils % 0.8 %; Eosinophils # 0.1 K/mcL (0.0-0.6); Eosinophils % 0.5 %; Hematocrit 31.4 % (37.5-50.1); Hemoglobin 9.8 g/dL (12.9-16.9); Lymphocytes # 2.3 K/mcL (0.6-4.6); Lymphocytes % 17.8 %; Mean Corpuscular HGB Conc 31.2 g/dL (31.6-35.5); Mean Corpuscular Hemoglobin 26.6 pg (28.0-33.3); Mean Corpuscular Volume 85.3 fL (83.0-100.0); Mean Platelet Volume 10.2 fL (9.4-12.4); Monocytes # 0.7 K/mcL (0.0-1.3); Monocytes % 5.1 %; Neutrophils # 9.7 K/mcL (1.6-8.9); Nucleated Red Blood Cells 0.2 /100 WBC (0); Platelet Count 407 K/mcL (140-400); Red Blood Count 3.68 M/mcL (4.19-5.50); Red Cell Distribution Width 15.6 % (11.5-14.5); Segmented Neutrophils % 73.8 %; White Blood Count 13.1 K/mcL (4.3-11.1)
[2022-02-17 05:09] LABS: Calcium 9.4 mg/dL (8.6-10.3); Potassium 4.6 mEq/L (3.5-5.1)
[2022-02-17] MEDS: Insulin LISPRO 300 UNITS/3 ML VIAL SUBQ SCH ×3 (08:05→19:39)
[2022-02-17] MEDS: Aspirin 81 MG TAB.CHEW PO SCH (08:11)
[2022-02-17] MEDS: hydrALAZINE 25 MG TABLET PO SCH ×2 (08:11→16:56)
[2022-02-17] MEDS: Furosemide 40 MG/4 ML VIAL IVP SCH ×2 (08:12→16:56)
[2022-02-17] MEDS: carvediloL 6.25 MG TABLET PO SCH ×2 (08:13→16:56)
[2022-02-17] MEDS: *HR* Acetylcysteine 20% 600 MG/3 ML ORAL SYRINGE PO SCH ×2 (09:08→21:50)
[2022-02-17] MEDS ORDERED: 0.9 % Sodium Chloride 250 ML IVC PRN (09:13)
[2022-02-17] MEDS ORDERED: *HR* Heparin 10,000 UNIT/10 ML VIAL IV PRN (09:13)
[2022-02-17] MEDS ORDERED: Heparin 1,000 UNITS/500 mL 500 ML ONE (15:08)
[2022-02-17] MEDS ORDERED: *HR* FentaNYL (PF) 100 MCG/2 ML VIAL ONE (15:08)
[2022-02-17] MEDS ORDERED: *HR* Midazolam HCl 2 MG/2 ML VIAL ONE (15:08)
[2022-02-17] MEDS ORDERED: *HR* Heparin 10,000 UNIT/10 ML VIAL ONE (15:08)
[2022-02-17] MEDS ORDERED: ISOVUE-370 200 ML INFUS..BTL ONE (15:08)
[2022-02-17] MEDS ORDERED: Nitroglycerin 1,000 MCG/5 ML VIAL IV ONE (15:09)
[2022-02-17] MEDS ORDERED: 0.9 % Sodium Chloride 1,000 ML ONE (15:09)
[2022-02-17] MEDS: *HR* Heparin 5,000 UNIT/ML VIAL SQ SCH (21:52)
[2022-02-18] MEDS: hydrALAZINE 25 MG TABLET PO SCH ×3 (00:46→16:46)
[2022-02-18 01:35] LABS: Bacteria,Urine Few per hpf (None-Few); Bilirubin,Urine Negative (Negative); Blood,Urine Moderate (Negative); Clarity,Urine Turbid (Clear); Color,Urine Yellow (Yellow); Glucose,Urine (UA) Normal (Normal); Hyaline Casts,Urine Few per lpf (None Seen); Ketones,Urine Negative (Negative); Leukocyte Esterase,Urine Moderate (Negative); Mucus,Urine Few per lpf (None-Few); Nitrite,Urine Negative (Negative); Protein,Urine >=300 mg/dL (Neg-Trace); RBC,Urine 30-50 per hpf (0-3); Specific Gravity,Urine 1.027 (1.010-1.025); Squamous Epithelial Cell,Urine Few per hpf (None-Few); Urobilinogen,Urine Normal (Normal); WBC,Urine 30-50 per hpf (0-3)
[2022-02-18] MEDS: *HR* Heparin 5,000 UNIT/ML VIAL SQ SCH ×3 (05:01→20:47)
[2022-02-18] MEDS: Insulin LISPRO 300 UNITS/3 ML VIAL SUBQ SCH ×3 (07:21→16:39)
[2022-02-18] MEDS: carvediloL 6.25 MG TABLET PO SCH ×2 (07:55→16:46)
[2022-02-18] MEDS: Aspirin 81 MG TAB.CHEW PO SCH (07:55)
[2022-02-18] MEDS: cefTRIAXone 1,000 MG in Water for inj. (sterile) 10 ML IVP SCH (07:56)
[2022-02-18] MEDS: Furosemide 40 MG/4 ML VIAL IVP SCH ×2 (07:56→16:46)
[2022-02-18] MEDS: *HR* Acetylcysteine 20% 600 MG/3 ML ORAL SYRINGE PO SCH ×2 (07:56→20:45)
[2022-02-18] MEDS ORDERED: *HR* Heparin 10,000 UNIT/10 ML VIAL IV PRN (08:11)
[2022-02-18] MEDS ORDERED: 0.9 % Sodium Chloride 250 ML IVC PRN (08:11)
[2022-02-18 09:33] LABS: Basophils # 0.1 K/mcL (0.0-0.2); Basophils % 0.6 %; Eosinophils # 0.1 K/mcL (0.0-0.6); Eosinophils % 0.4 %; Hematocrit 28.8 % (37.5-50.1); Hemoglobin 8.9 g/dL (12.9-16.9); Immature Granulocytes % 1.4 % (0-4); Lymphocytes # 1.2 K/mcL (0.6-4.6); Lymphocytes % 10.3 %; Mean Corpuscular HGB Conc 30.9 g/dL (31.6-35.5); Mean Corpuscular Hemoglobin 26.7 pg (28.0-33.3); Mean Corpuscular Volume 86.5 fL (83.0-100.0); Mean Platelet Volume 10.5 fL (9.4-12.4); Monocytes # 0.8 K/mcL (0.0-1.3); Monocytes % 6.7 %; Neutrophils # 9.1 K/mcL (1.6-8.9); Platelet Count 297 K/mcL (140-400); Red Blood Count 3.33 M/mcL (4.19-5.50); Segmented Neutrophils % 80.6 %; White Blood Count 11.3 K/mcL (4.3-11.1)
[2022-02-18] MEDS: Heparin 25,000UNIT/250ML 1/2NS 25,000 UNIT/250 ML IV.SOLN IVC SCH (10:11)
[2022-02-18 10:26] LABS: Calcium 8.4 mg/dL (8.6-10.3); Magnesium 1.7 mg/dL (1.6-2.6); Potassium 4.1 mEq/L (3.5-5.1)
[2022-02-18 18:19] LABS: Urine Collection Volume NOT PROVIDED mL
[2022-02-19] MEDS: hydrALAZINE 25 MG TABLET PO SCH ×4 (00:20→23:58)
[2022-02-19] MEDS: *HR* Heparin 5,000 UNIT/ML VIAL SQ SCH ×3 (05:14→21:59)
[2022-02-19 08:11] LABS: Basophils # 0.1 K/mcL (0.0-0.2); Basophils % 0.5 %; Eosinophils # 0.1 K/mcL (0.0-0.6); Eosinophils % 0.9 %; Hematocrit 28.4 % (37.5-50.1); Hemoglobin 8.6 g/dL (12.9-16.9); Immature Granulocytes % 0.9 % (0-4); Lymphocytes # 1.8 K/mcL (0.6-4.6); Lymphocytes % 16.4 %; Mean Corpuscular HGB Conc 30.3 g/dL (31.6-35.5); Mean Corpuscular Hemoglobin 26.5 pg (28.0-33.3); Mean Corpuscular Volume 87.4 fL (83.0-100.0); Mean Platelet Volume 10.2 fL (9.4-12.4); Monocytes # 0.9 K/mcL (0.0-1.3); Monocytes % 8.4 %; Neutrophils # 7.8 K/mcL (1.6-8.9); Platelet Count 292 K/mcL (140-400); Red Blood Count 3.25 M/mcL (4.19-5.50); Red Cell Distribution Width 16.5 % (11.5-14.5); Segmented Neutrophils % 72.9 %; White Blood Count 10.7 K/mcL (4.3-11.1)
[2022-02-19 08:32] LABS: Calcium 8.4 mg/dL (8.6-10.3); Potassium 4.1 mEq/L (3.5-5.1)
[2022-02-19] MEDS: carvediloL 6.25 MG TABLET PO SCH ×2 (09:29→18:15)
[2022-02-19] MEDS: Furosemide 40 MG/4 ML VIAL IVP SCH ×2 (09:30→18:16)
[2022-02-19] MEDS: Insulin LISPRO 300 UNITS/3 ML VIAL SUBQ SCH ×3 (09:30→18:12)
[2022-02-19] MEDS: *HR* Acetylcysteine 20% 600 MG/3 ML ORAL SYRINGE PO SCH ×2 (09:30→23:57)
[2022-02-19] MEDS: Aspirin 81 MG TAB.CHEW PO SCH (09:31)
[2022-02-19] MEDS: cefTRIAXone 1,000 MG in Water for inj. (sterile) 10 ML IVP SCH (09:31)
[2022-02-19] MEDS ORDERED: Perflutren Lipid Microsphere 1.3 ML in 0.9 % Sodium Chloride 8.7 ML IVP PRN (15:25)
[2022-02-19] MEDS ORDERED: Acetaminophen 325 MG TABLET PO ONE (18:23)
[2022-02-20] MEDS: Acetaminophen 325 MG TABLET PO PRN ×3 (05:24→21:34)
[2022-02-20] MEDS: *HR* Heparin 5,000 UNIT/ML VIAL SQ SCH ×3 (05:25→21:12)
[2022-02-20 05:47] LABS: Hemoglobin 8.3 g/dL (12.9-16.9); Mean Corpuscular HGB Conc 29.6 g/dL (31.6-35.5); Mean Corpuscular Hemoglobin 26.2 pg (28.0-33.3); Mean Corpuscular Volume 88.3 fL (83.0-100.0); Mean Platelet Volume 11.2 fL (9.4-12.4); Platelet Count 223 K/mcL (140-400); Red Blood Count 3.17 M/mcL (4.19-5.50); Red Cell Distribution Width 16.8 % (11.5-14.5)
[2022-02-20 06:13] LABS: Calcium 8.7 mg/dL (8.6-10.3); Potassium 4.1 mEq/L (3.5-5.1)
[2022-02-20] MEDS: Insulin LISPRO 300 UNITS/3 ML VIAL SUBQ SCH ×3 (07:55→16:33)
[2022-02-20] MEDS: Aspirin 81 MG TAB.CHEW PO SCH (07:55)
[2022-02-20] MEDS: hydrALAZINE 25 MG TABLET PO SCH ×2 (07:56→17:05)
[2022-02-20] MEDS: *HR* Acetylcysteine 20% 600 MG/3 ML ORAL SYRINGE PO SCH ×2 (07:56→21:12)
[2022-02-20] MEDS: Furosemide 40 MG/4 ML VIAL IVP SCH ×2 (07:56→17:05)
[2022-02-20] MEDS: carvediloL 6.25 MG TABLET PO SCH ×2 (07:56→17:05)
[2022-02-20 14:05] LABS: Total Volume 24 Hour,Urine 0.77 Liters (0.80-1.80)
[2022-02-20] MEDS ORDERED: Nitroglycerin 0.4 MG TAB.SUBL SL ONE ×2 (16:54)
[2022-02-20] MEDS ORDERED: Nitroglycerin 0.4 MG TAB.SUBL SL PRN (16:56)
[2022-02-20] MEDS: Isosorbide MONOnitrate (24 HR) 30 MG TAB.ER.24H PO SCH (17:35)
[2022-02-20] MEDS: amLODIPine 5 MG TABLET PO SCH (17:35)
[2022-02-20 22:33] LABS: Alpha 2 Globulin (PEP) 0.75 g/dL (0.48-1.05); Beta Globulin (PEP) 0.66 g/dL (0.48-1.10)
[2022-02-21] MEDS: hydrALAZINE 25 MG TABLET PO SCH ×3 (02:00→16:53)
[2022-02-21] MEDS: *HR* Heparin 5,000 UNIT/ML VIAL SQ SCH ×3 (05:05→21:44)
[2022-02-21] MEDS ORDERED: *HR* Labetalol 20 MG/4 ML SYRINGE IVP ONE (05:05)
[2022-02-21 05:45] LABS: Calcium 9.3 mg/dL (8.6-10.3); Potassium 4.5 mEq/L (3.5-5.1)
[2022-02-21] MEDS: Isosorbide MONOnitrate (24 HR) 30 MG TAB.ER.24H PO SCH (07:53)
[2022-02-21] MEDS: amLODIPine 5 MG TABLET PO SCH (07:53)
[2022-02-21] MEDS: Aspirin 81 MG TAB.CHEW PO SCH (07:53)
[2022-02-21] MEDS: carvediloL 6.25 MG TABLET PO SCH ×2 (07:53→16:51)
[2022-02-21] MEDS: Furosemide 40 MG/4 ML VIAL IVP SCH ×2 (07:53→16:51)
[2022-02-21] MEDS: Insulin LISPRO 300 UNITS/3 ML VIAL SUBQ SCH ×4 (07:54→21:45)
[2022-02-21] MEDS ORDERED: carvediloL 6.25 MG TABLET PO SCH (08:00)
[2022-02-21] MEDS: *HR* Acetylcysteine 20% 600 MG/3 ML ORAL SYRINGE PO SCH ×2 (08:04→21:44)
[2022-02-21] MEDS ORDERED: 0.9 % Sodium Chloride 250 ML IVC PRN (08:24)
[2022-02-21] MEDS ORDERED: *HR* Heparin 10,000 UNIT/10 ML VIAL IV PRN (08:24)
[2022-02-21] MEDS ORDERED: Heparin 1,000 UNITS/500 mL 500 ML ONE (09:30)
[2022-02-21] MEDS ORDERED: *HR* Midazolam HCl 2 MG/2 ML VIAL IVP ONE (09:55)
[2022-02-21] MEDS ORDERED: *HR* FentaNYL (PF) 100 MCG/2 ML VIAL IVP ONE (09:55)
[2022-02-21] MEDS ORDERED: 0.9 % Sodium Chloride 500 ML ONE (10:00)
[2022-02-21] MEDS ORDERED: *HR* Midazolam HCl 2 MG/2 ML VIAL ONE (10:00)
[2022-02-21] MEDS ORDERED: *HR* Heparin 5,000 UNIT/ML VIAL ONE (10:18)
[2022-02-21 10:50] LABS: IFE Reflexed NOT DONE
[2022-02-21 13:48] LABS: Troponin I 0.03 ng/mL (< 0.04)
[2022-02-21] MEDS: Clindamycin 600 MG/50 ML 600 MG/50 ML IV.SOLN IVPB ONE ×2 (14:03→16:00)
[2022-02-21] MEDS ORDERED: hydrALAZINE 25 MG TABLET PO PRN (15:51)
[2022-02-21] MEDS: Ergocalciferol (VIT D2) 50,000 UNIT (1.25MG) CAP PO SCH (16:51)
[2022-02-21] MEDS ORDERED: D5% in Water 1,000 ML IVC PRN (21:31)
[2022-02-21] MEDS ORDERED: Dextrose 4 GM Chewable Tablets PO PRN ×2 (21:31)
[2022-02-21] MEDS ORDERED: *HR* Dextrose 50 % in Water (Syg) 50 ML SYRINGE IVP PRN (21:31)
[2022-02-21] MEDS: Acetaminophen 325 MG TABLET PO PRN (21:51)
[2022-02-22] MEDS: Melatonin 3 MG TABLET PO PRN (00:59)
[2022-02-22] MEDS: hydrALAZINE 25 MG TABLET PO SCH ×4 (00:59→22:34)
[2022-02-22] MEDS: *HR* Heparin 5,000 UNIT/ML VIAL SQ SCH ×3 (06:17→22:20)
[2022-02-22 06:59] LABS: Hematocrit 28.7 % (37.5-50.1); Hemoglobin 9.2 g/dL (12.9-16.9); Mean Corpuscular HGB Conc 32.1 g/dL (31.6-35.5); Mean Corpuscular Hemoglobin 27.1 pg (28.0-33.3); Mean Corpuscular Volume 84.7 fL (83.0-100.0); Mean Platelet Volume 9.8 fL (9.4-12.4); Platelet Count 274 K/mcL (140-400); Red Blood Count 3.39 M/mcL (4.19-5.50); Red Cell Distribution Width 16.9 % (11.5-14.5)
[2022-02-22 07:19] LABS: Calcium 9.4 mg/dL (8.6-10.3); Potassium 4.4 mEq/L (3.5-5.1)
[2022-02-22] MEDS: Insulin LISPRO 300 UNITS/3 ML VIAL SUBQ SCH ×4 (08:11→22:21)
[2022-02-22] MEDS: Isosorbide MONOnitrate (24 HR) 60 MG TAB.ER.24H PO SCH (08:38)
[2022-02-22] MEDS: carvediloL 6.25 MG TABLET PO SCH ×2 (08:39→16:42)
[2022-02-22] MEDS: Furosemide 40 MG/4 ML VIAL IVP SCH ×2 (08:39→16:42)
[2022-02-22] MEDS: Aspirin 81 MG TAB.CHEW PO SCH (08:39)
[2022-02-22] MEDS: *HR* Acetylcysteine 20% 600 MG/3 ML ORAL SYRINGE PO SCH ×2 (08:39→22:20)
[2022-02-22] MEDS: Acetaminophen 325 MG TABLET PO PRN ×2 (12:22→22:34)
[2022-02-22] MEDS: Sacubitril/Valsartan 24/26 MG 1 TABLET PO SCH (22:20)
[2022-02-22] MEDS: traZODone 50 MG TABLET PO PRN (22:20)
[2022-02-23] MEDS: *HR* Heparin 5,000 UNIT/ML VIAL SQ SCH ×3 (06:38→22:52)
[2022-02-23] MEDS: Insulin LISPRO 300 UNITS/3 ML VIAL SUBQ SCH ×4 (07:26→22:52)
[2022-02-23] MEDS: hydrALAZINE 25 MG TABLET PO SCH ×3 (09:25→22:52)
[2022-02-23] MEDS: Sacubitril/Valsartan 24/26 MG 1 TABLET PO SCH ×2 (09:25→22:52)
[2022-02-23] MEDS: Aspirin 81 MG TAB.CHEW PO SCH (09:26)
[2022-02-23] MEDS: Furosemide 40 MG/4 ML VIAL IVP SCH ×2 (09:26→17:26)
[2022-02-23] MEDS: carvediloL 6.25 MG TABLET PO SCH ×2 (09:26→17:27)
[2022-02-23] MEDS: Isosorbide MONOnitrate (24 HR) 60 MG TAB.ER.24H PO SCH (09:26)
[2022-02-23] MEDS: Ondansetron 4 MG/2 ML VIAL IVP PRN (13:56)
[2022-02-23] MEDS: Acetaminophen 325 MG TABLET PO PRN (22:51)
[2022-02-23] MEDS: traZODone 50 MG TABLET PO PRN (22:52)
[2022-02-23] MEDS: Melatonin 3 MG TABLET PO PRN (22:52)
[2022-02-24 01:20] LABS: Hematocrit 28.2 % (37.5-50.1); Hemoglobin 8.8 g/dL (12.9-16.9); Mean Corpuscular HGB Conc 31.2 g/dL (31.6-35.5); Mean Corpuscular Hemoglobin 26.8 pg (28.0-33.3); Mean Platelet Volume 10.3 fL (9.4-12.4); Platelet Count 260 K/mcL (140-400); Red Blood Count 3.28 M/mcL (4.19-5.50); White Blood Count 7.5 K/mcL (4.3-11.1)
[2022-02-24 01:44] LABS: Potassium 4.8 mEq/L (3.5-5.1)
[2022-02-24] MEDS: *HR* Heparin 5,000 UNIT/ML VIAL SQ SCH ×3 (06:03→21:36)
[2022-02-24] MEDS: Insulin LISPRO 300 UNITS/3 ML VIAL SUBQ SCH ×4 (07:58→21:38)
[2022-02-24] MEDS ORDERED: 0.9 % Sodium Chloride 250 ML IVC PRN (08:47)
[2022-02-24] MEDS ORDERED: *HR* Heparin 10,000 UNIT/10 ML VIAL IV PRN (08:47)
[2022-02-24] MEDS: carvediloL 6.25 MG TABLET PO SCH ×2 (13:52→17:35)
[2022-02-24] MEDS: Sacubitril/Valsartan 24/26 MG 1 TABLET PO SCH ×2 (13:52→21:37)
[2022-02-24] MEDS: hydrALAZINE 25 MG TABLET PO SCH ×2 (13:52→17:35)
[2022-02-24] MEDS: Isosorbide MONOnitrate (24 HR) 60 MG TAB.ER.24H PO SCH (13:52)
[2022-02-24] MEDS: Aspirin 81 MG TAB.CHEW PO SCH (13:52)
[2022-02-24] MEDS: Furosemide 40 MG TABLET PO SCH (17:23)
[2022-02-24] MEDS: Furosemide 40 MG/4 ML VIAL IVP SCH (20:29)
[2022-02-24] MEDS: Melatonin 3 MG TABLET PO PRN (21:38)
[2022-02-24] MEDS: traZODone 50 MG TABLET PO PRN (21:40)
[2022-02-25] MEDS: hydrALAZINE 25 MG TABLET PO SCH ×2 (00:54→09:17)
[2022-02-25 04:09] VITALS: TEMP 97.9; O2SAT 96
[2022-02-25] MEDS: *HR* Heparin 5,000 UNIT/ML VIAL SQ SCH ×2 (06:35→14:10)
[2022-02-25 06:39] VITALS: BP 134/85; PULSE 63
[2022-02-25] MEDS: Insulin LISPRO 300 UNITS/3 ML VIAL SUBQ SCH ×2 (07:47→11:56)
[2022-02-25] MEDS: Furosemide 40 MG TABLET PO SCH (09:17)
[2022-02-25] MEDS: carvediloL 6.25 MG TABLET PO SCH (09:17)
[2022-02-25] MEDS: Aspirin 81 MG TAB.CHEW PO SCH (09:17)
[2022-02-25] MEDS: Sacubitril/Valsartan 24/26 MG 1 TABLET PO SCH (09:17)
[2022-02-25] MEDS: Isosorbide MONOnitrate (24 HR) 60 MG TAB.ER.24H PO SCH (09:17)
[2022-02-25] MEDS: Acetaminophen 325 MG TABLET PO PRN (14:10)
== END 2022-02-25 17:58 | disposition home health service (06) | DRG 192 ==
LOC: 2ANU 06:30 → EMEROOARM 06:30 → SUATTDRO 13:36 → 2ANU 14:16
PROVIDERS: ADMIT Internal Medicine; ATTEND Internal Medicine
PROC: IRPERMA (2022-02-21 12:00)